=== PATIENT | male | born 1945 | race Caucasian/White ===

== ENCOUNTER → 2016-06-25 | Outpatient (CLI) | payer OTHER | LOC: RAD 08:32 | PROVIDERS: ATTEND Internal Medicine Cardiovascular Disease | DX: R07.89 Other chest pain (principal); R06.09 Other forms of dyspnea | CPT/HCPCS: 78452; 93017; A9502 ==

== ENCOUNTER → 2016-06-28 | Outpatient (CLI) | payer OTHER | LOC: RAD 13:00 | PROVIDERS: ATTEND Internal Medicine Cardiovascular Disease | DX: R06.09 Other forms of dyspnea (principal); R07.89 Other chest pain | CPT/HCPCS: 93306 ==

== ENCOUNTER 2023-02-28 08:07 | Observation (INO) ==
--- NOTE | 2023-02-28 08:32 | DR.EXTPAIN ---
HPI Time seen Time Seen by Provider: 02/28/23 08:31 PCP Primary Care Physician: DELFINO Complaint/Symptoms Chief Complaint Doctor Comments: 77-year-old male presents for evaluation. Patient rolled out of bed last week (per spouse, does this occasionally), injured his back. Pain has improved, denies numbness or bowel bladder incontinence. Having difficulty with standing and ambulation. Both legs feel like jelly. Quickly give out. No difficulty getting out of a chair to standing position. No reported fever, chills, upper respiratory symptoms, no cough, no nausea, no vomiting, no bowel or bladder issues. Has a distant history of lumbar fusion. Chief Complaint:: DAUGHTER STATES THAT PATIENT FELL LAST WEEK AND SINCE THEN HE HAS BEEN UNABLE TO WALK. WHEN HE STANDS UP HIS LEGS FEEL LIKE JELLO. DAUGHTER CALLS DR. SALEH AND HE STATED TO COME TO THE ER FOR A CT SCAN AND POSSIBLE ADMISSION. COVID-19 Coronavirus risk:travel/contact w/high risk person: No Has patient experienced Coronavirus symptoms: No Source History Provided: Patient and Family Member Mode of arrival Mode of Arrival: Wheelchair Timing Onset of Chief Complaint: 02/21/23 PMH PMH Past Medical History: Yes Past Medical History: Diabetes and Hypertension Past Medical History Comment: BACK ISSUES, CAD Past Surgical History: Yes Past Surgical History Comment: BILATERAL LEG STENTS PLACEMENT, history of lumbar fusion Family History History of Family Medical Conditions: Yes Family Medical History: Diabetes Mellitus, Cancer and Hypertension Social History Type of Tobacco Use: None Does any household member use tobacco: No Alcohol Use: None Do you use any recreational Drugs:: No Lives With: Family Lives Where: Home Travel Risk Coronavirus risk:travel/contact w/high risk person: No Has patient experienced Coronavirus symptoms: No Infectious screening In the last 2 months have you had wt loss of >10#?: NO Have you had fever, night sweats or hemotysis?: No Have you traveled outside the country in the last 6 months?: No Isolation: Standard ROS Review of Systems Constitutional: Weakness Eyes: No Symptoms Reported ENTM: No Symptoms Reported Respiratoy: No Symptoms Reported Cardiovascular: No Symptoms Reported Gastrointestinal/Abdominal: No Symptoms Reported Genitourinary: No Symptoms Reported Neurological: See HPI Musculoskeletal: No Symptoms Reported Integumentary: No Symptoms Reported Hematologic/Lymphatic: No Symptoms Reported All Other Systems: Reviewed and Negative PE Vital Signs Vitals: Vital Signs Temperature 97.2 F Pulse Rate 58 Respiratory Rate 20 Blood Pressure 155/72 O2 Sat by Pulse Oximetry 98 General General Appearance: Alert and In No Apparent Distress Head Head Exam: Normal Inspection, Atraumatic and Normocephalic Eyes Eye exam: PERRL and EOMI ENT ENT Exam: Normal Oropharynx and Mucous Membranes Moist Neck Neck Exam: Normal Inspection and Full ROM; negative Tenderness Respiratory Respiratory Exam: Normal Lung Sounds Bilat; negative Accessory Muscle Use or Respiratory Distress Cardiovascular Cardiovascular Exam: Regular Rate, Normal Rhythm and Normal Heart Sounds Abdominal Exam Abdominal Exam: Normal Bowel Sounds and Soft; negative Tenderness Extremities Extremities Exam: Normal Inspection; negative Tenderness or Edema Back Back Exam: Normal Inspection; negative Tenderness Neurological Neurological Exam: Alert, Oriented X3 and CN II-XII Intact Skin Skin Exam: Warm and Dry Other Exam Other Exam: Patient able to get from sitting to standing position without difficulty. Feels very weak on his legs. Able to raise and maintain both legs off the bed, although a little shaky on both. Has good distal pulses and sensation of the f eet. Normal color of the feet. COURSE Treatment Treatment: 77-year-old male with bilateral leg weakness since suffering a fall out of bed 1 week ago. Had lumbar x-rays through his primary care physician, questionable T11-T12 abnormality. Patient not have any back pain or numbness of the legs. Workup initiated. Will obtain thoracic CT for further evaluation, will also obtain a brain CT to rule out other worrisome pathology. 1034 -no obvious cause of the patient's bilateral leg weakness so far. CT of the thoracic spine shows probable old compression fractures of T11 and T12 that have since fused together. CT of the brain showed microischemic changes but no obvious acute abnormalities. CBC, CMP, CK levels acceptable. Has mild elevated ESR at 22, but a normal CRP at 0.8. Lipase is a bit elevated to 45, however patient not having any symptoms consistent with pancreatitis. Urinalysis pending at this time. Discussed with his provider, Dr. Harper. Will admit the patient to the hospital due to his inability to walk. He will request a physical therapy consult, will give a trial of Solu-Medrol, 40 mg, 3 times daily for possible underlying PMR. ROR Labs Reviewed Laboratory Results Reviewed?: Yes 02/28/23 08:45 02/28/23 08:45 Laboratory: WBC 7.2 X10^3/uL (3.6-10.0) 02/28/23 08:45 RBC 4.75 X10^6/uL (4.7-6.0) 02/28/23 08:45 Hgb 14.6 g/dL (13.5-18.0) 02/28/23 08:45 Hct 43.0 % (42.0-54.0) 02/28/23 08:45 MCV 90.5 fL (80.0-100.0) 02/28/23 08:45 MCH 30.7 pg (27.0-34.0) 02/28/23 08:45 MCHC 34.0 g/dL (33.0-35.0) 02/28/23 08:45 RDW 13.7 % (11.6-16.5) 02/28/23 08:45 Plt Count 147 X10^3/uL (150.0-450.0) L 02/28/23 08:45 MPV 7.6 fL (7.4-11.0) 02/28/23 08:45 Neut % (Auto) 45.9 % (42.0-75.0) 02/28/23 08:45 Lymph % (Auto) 32.8 % (21.0-51.0) 02/28/23 08:45 [place] % (Auto) 14.5 % (0.0-13.0) H 02/28/23 08:45 Eos % (Auto) 5.8 % (0.9-2.9) H 02/28/23 08:45 Baso % (Auto) 1.0 % (0.2-1.0) 02/28/23 08:45 Neut # (Auto) 3.3 x10^3/uL (2.2-4.8) 02/28/23 08:45 Lymph # (Auto) 2.4 X10^3/uL (1.3-2.9) 02/28/23 08:45 [place] # (Auto) 1.0 x10^3/uL (0.3-0.8) H 02/28/23 08:45 Eos # (Auto) 0.4 x10^3/uL (0.0-0.2) H 02/28/23 08:45 Baso # (Auto) 0.1 X10^3/uL (0.0-0.1) 02/28/23 08:45 Absolute Nucleated RBC 0.1 /100WBC 02/28/23 08:45 ESR 22 MM/HOUR (0-15) H 02/28/23 08:45 Sodium 135 mmol/L (136-145) L 02/28/23 08:45 Corrected Sodium 136 mmol/L (136-145) 02/28/23 08:45 Potassium 4.3 mmol/L (3.5-5.1) 02/28/23 08:45 Chloride 102 mmol/L (98-107) 02/28/23 08:45 Carbon Dioxide 29.3 mmol/L (21-32) 02/28/23 08:45 BUN 27 mg/dL (7-18) H 02/28/23 08:45 Creatinine 1.22 mg/dL (0.70-1.30) 02/28/23 08:45 Est GFR (MDRD) Af Amer > 60 (>60) 02/28/23 08:45 Est GFR (MDRD) Non-Af > 60 (>60) 02/28/23 08:45 Glucose 136 mg/dL (65-99) H 02/28/23 08:45 Calcium 8.9 mg/dL (8.5-10.1) 02/28/23 08:45 Corrected Calcium TNP 02/28/23 08:45 Magnesium 1.9 mg/dL (2.0-2.9) L 02/28/23 08:45 Total Bilirubin 0.70 mg/dL (0.2-1.0) 02/28/23 08:45 AST 19 Units/L (15-37) 02/28/23 08:45 ALT 31 Units/L (12-78) 02/28/23 08:45 Alkaline Phosphatase 78 Units/L (46-116) 02/28/23 08:45 Creatine Kinase 58 Units/L (39-308) 02/28/23 08:45 C-Reactive Protein 0.80 mg/L (0-3.0) 02/28/23 08:45 Total Protein 7.7 g/dL (6.4-8.2) 02/28/23 08:45 Albumin 3.6 g/dL (3.4-5.0) 02/28/23 08:45 Globulin 4.1 g/dL (2.5-4.5) 02/28/23 08:45 Albumin/Globulin Ratio 0.9 Ratio (1.1-2.1) L 02/28/23 08:45 Lipase 245 Units/L (16-77) H 02/28/23 08:45 Specimen Type Clean catch urine 02/28/23 10:25 Urine Color Yellow (YELLOW) 02/28/23 10:25 Urine Appearance Clear (CLEAR) 02/28/23 10:25 Urine pH 5.0 (5.0 - 8.0) 02/28/23 10:25 Ur Specific [place] 1.020 (1.000-1.030) 02/28/23 10:25 Urine Protein 1+ (NEGATIVE) 02/28/23 10:25 Urine Glucose (UA) Negative (NEGATIVE) 02/28/23 10:25 Urine Ketones Negative (NEGATIVE) 02/28/23 10:25 Urine Blood Negative (NEGATIVE) 02/28/23 10:25 Urine Nitrite Negative (NEGATIVE) 02/28/23 10:25 Urine Bilirubin Negative (NEGATIVE) 02/28/23 10:25 Urine Urobilinogen Normal (NORMAL) 02/28/23 10:25 Ur Leukocyte Esterase Negative (NEGATIVE) 02/28/23 10:25 Urine RBC None seen /HPF (0-3) 02/28/23 10:25 Urine WBC 0-2 /HPF (0-5) 02/28/23 10:25 Ur Squamous Epith Cells Rare /HPF (NEGATIVE) 02/28/23 10:25 Urine Bacteria Negative /HPF (NEGATIVE) 02/28/23 10:25 Ur Culture Indicated? No/not indicated 02/28/23 10:25 XRAY XRAY Interpreted by: Radiologist X-ray Results: EXAM: BRAIN W/O CON HISTORY: fell 6 days ago; COMPARISON: None. TECHNIQUE: Multiple axial images of the head were performed from the skullbase to the vertex using standard departmental protocol. Sagittal and coronal reformatted images were performed. Dose reduction techniques including Automated Exposure Control (AEC) and adjustment of mA and kV were utilized. FINDINGS: Limitations: None significant. Ventricles and cisterns: Patent. Normal in size for age. Brain parenchyma: No parenchymal mass or hematoma. Acosta-white differentiation appears preserved. Moderate low attenuation change in the supratentorial subcortical and deep white matter. Extra-axial: No extra-axial collection. Orbits: The globes are intact. Sinuses: Air-fluid level in the right frontal sinus image 14 series 3. Moderate mucosal thickening of the anterior ethmoid air cells. Bones: The calvarium is intact. IMPRESSION: No intracranial hematoma. Moderate chronic small vessel disease. Air-fluid level in the right frontal sinus suggests acute sinusitis. THIS IS AN ELECTRONICALLY VERIFIED FINAL REPORT 02/28/2023 9:23 AM - Electronically signed by Alverto Hercules MD EXAM: THORACIC SPINE W/O CON HISTORY: Fall, bilateral leg weakness TECHNIQUE: Axial noncontrast images with coronal and sagittal reformats. Dose reduction procedures were used with mA/kv adjusted for body size. COMPARISON: None FINDINGS: The bones are osteopenic. The alignment is normal. The vertebral bodies are of average height with exception old compressions T11/T12 with fusion of those 2 vertebral bodies with obliteration of the T11-12 disc. No new compression fractures are identified. Disc heights are preserved with exception of degenerative disc disease at T3-4 and T8-9. Pedicles, transverse processes, and posterior elements are intact. The neural foramina are patent. The joints are within normal limits for age. No acute fracture, lytic, or blastic lesion is identified. No paraspinous soft tissue abnormality is identified. It should be noted that CT is not adequate for the evaluation of thoracic disc disease or thoracic spinal cord disease. If either of those entities are of clinical concern MRI is the examination of choice and should be considered. IMPRESSION: No definite acute traumatic thoracic spine abnormality. Old compressions of T11/T12 with fusion of those vertebral bodies with obliteration of the disc. Multilevel degenerative disc disease See note above with reference to thoracic disc disease and spinal cord disease. THIS IS AN ELECTRONICALLY VERIFIED FINAL REPORT 02/28/2023 9:53 AM - Electronically signed by Joshua Rodriguez MD Opioid Opioid Risk Tool Age (Zachary box if 16-45): No History of Preadolescent Sexual Abuse: No Total: 0 Total Score Risk Category: Low Risk Copyright: Darion LLOYD predicting aberrant behaviors Discharge Plan Diagnosis Discharge Problem: Bilateral leg weakness, Inability to walk Discharge Plan Patient Disposition: 09 ADMITTED INPATIENT Condition: Stable
[2023-02-28] MEDS ORDERED: NS 500 ML IV 500 ML IV ONE ×2 (08:46→08:51)
[2023-02-28 08:57] LABS: BASOPHILS # (AUTO) 0.1 X10^3/uL (0.0-0.1); EOSINOPHILS # (AUTO) 0.4 x10^3/uL (0.0-0.2); EOSINOPHILS % (AUTO) 5.8 % (0.9-2.9); HEMOGLOBIN 14.6 g/dL (13.5-18.0); LYMPHOCYTES # (AUTO) 2.4 X10^3/uL (1.3-2.9); LYMPHOCYTES % (AUTO) 32.8 % (21.0-51.0); MEAN CORPUSCULAR HEMOGLOBIN 30.7 pg (27.0-34.0); MEAN CORPUSCULAR VOLUME 90.5 fL (80.0-100.0); MEAN PLATELET VOLUME 7.6 fL (7.4-11.0); MONOCYTES % (AUTO) 14.5 % (0.0-13.0); NEUTROPHILS # (AUTO) 3.3 x10^3/uL (2.2-4.8); NEUTROPHILS % (AUTO) 45.9 % (42.0-75.0); PLATELET COUNT 147 X10^3/uL (150.0-450.0); RED BLOOD COUNT 4.75 X10^6/uL (4.7-6.0); RED CELL DISTRIBUTION WIDTH 13.7 % (11.6-16.5); WHITE BLOOD COUNT 7.2 X10^3/uL (3.6-10.0)
[2023-02-28 09:01] LABS: ERYTHROCYTE SEDIMENTATION RATE 22 MM/HOUR (0-15)
[2023-02-28 09:18] LABS: ALANINE AMINOTRANSFERASE 31 Units/L (12-78); ALBUMIN 3.6 g/dL (3.4-5.0); ALKALINE PHOSPHATASE 78 Units/L (46-116); ASPARTATE AMINO TRANSFERASE 19 Units/L (15-37); BLOOD UREA NITROGEN 27 mg/dL (7-18); CALCIUM 8.9 mg/dL (8.5-10.1); CARBON DIOXIDE 29.3 mmol/L (21-32); CHLORIDE 102 mmol/L (98-107); COR NA(FOR HYPERGLY) 136 mmol/L (136-145); CREATINE KINASE 58 Units/L (39-308); CREATININE 1.22 mg/dL (0.70-1.30); GLUCOSE 136 mg/dL (65-99); LIPASE 245 Units/L (16-77); POTASSIUM 4.3 mmol/L (3.5-5.1); SODIUM 135 mmol/L (136-145); TOTAL PROTEIN 7.7 g/dL (6.4-8.2); eGFR NON BLACK RACES > 60 (>60)
--- NOTE | 2023-02-28 09:26 | CT ---
EXAM:BRAIN W/O CONHISTORY:fell 6 days ago;COMPARISON:None.TECHNIQUE:Multiple axial images of the head were performed from the skullbase to the vertex using standard departmental protocol. Sagittal and coronal reformatted images were performed. Dose reduction techniques including Automated Exposure Control (AEC) and adjustment of mA and kV were utilized.FINDINGS:Limitations: None significant.Ventricles and cisterns: Patent. Normal in size for age.Brain parenchyma: No parenchymal mass or hematoma. Acosta-white differentiation appears preserved. Moderate low attenuation change in the supratentorial subcortical and deep white matter.Extra-axial: No extra-axial collection.Orbits: The globes are intact.Sinuses: Air-fluid level in the right frontal sinus image 14 series 3. Moderate mucosal thickening of the anterior ethmoid air cells.Bones: The calvarium is intact.IMPRESSION:No intracranial hematoma. Moderate chronic small vessel disease.Air-fluid level in the right frontal sinus suggests acute sinusitis.THIS IS AN ELECTRONICALLY VERIFIED FINAL REPORT02/28/2023 9:23 AM - Electronically signed by Alverto Hercules MD
--- NOTE | 2023-02-28 09:57 | CT ---
EXAM:THORACIC SPINE W/O CONHISTORY:Fall, bilateral leg weaknessTECHNIQUE:Axial noncontrast images with coronal and sagittal reformats. Dose reduction procedures were used with mA/kv adjusted for body size.COMPARISON:NoneFINDINGS:The bones are osteopenic. The alignment is normal. The vertebral bodies are of average height with exception old compressions T11/T12 with fusion of those 2 vertebral bodies with obliteration of the T11-12 disc. No new compression fractures are identified. Disc heights are preserved with exception of degenerative disc disease at T3-4 and T8-9. Pedicles, transverse processes, and posterior elements are intact. The neural foramina are patent. The joints are within normal limits for age. No acute fracture, lytic, or blastic lesion is identified. No paraspinous soft tissue abnormality is identified. It should be noted that CT is not adequate for the evaluation of thoracic disc disease or thoracic spinal cord disease. If either of those entities are of clinical concern MRI is the examination of choice and should be considered.IMPRESSION:No definite acute traumatic thoracic spine abnormality.Old compressions of T11/T12 with fusion of those vertebral bodies with obliteration of the disc.Multilevel degenerative disc diseaseSee note above with reference to thoracic disc disease and spinal cord disease.THIS IS AN ELECTRONICALLY VERIFIED FINAL REPORT02/28/2023 9:53 AM - Electronically signed by Joshua Rodriguez MD
[2023-02-28 10:30] LABS: BILIRUBIN,URINE NEGATIVE (NEGATIVE); BLOOD/HEMOGLOBIN,URINE NEGATIVE (NEGATIVE); GLUCOSE, URINE NEGATIVE (NEGATIVE); KETONES,URINE NEGATIVE (NEGATIVE); LEUKOCYTE ESTERASE ,URINE NEGATIVE (NEGATIVE); NITRITES,URINE NEGATIVE (NEGATIVE); PROTEIN,URINE 1+ (NEGATIVE); UROBILINOGEN,URINE NORMAL (NORMAL)
[2023-02-28 10:39] LABS: APPEARANCE,URINE CLEAR (CLEAR); BACTERIA,URINE NEGATIVE /HPF (NEGATIVE); COLOR,URINE YELLOW (YELLOW); RBC,URINE NONE SEEN /HPF (0-3); SQUAMOUS EPITHELIAL CELL,UR RARE /HPF (NEGATIVE)
[2023-02-28] MEDS ORDERED: SOLU-Medrol 40 MG VIAL IVP ONE (11:02)
[2023-02-28] MEDS ORDERED: SOLU-Medrol 40 MG VIAL ONE (11:09)
[2023-02-28] MEDS ORDERED: CONSULT PHARMACY - POTASSIUM & MAGNESIUM XX SCH ×2 (12:18→19:00)
[2023-02-28] MEDS: NEURONTIN CAP 100 MG PO SCH ×2 (14:13→21:34)
[2023-02-28] MEDS: SOLU-Medrol 40 MG VIAL IVP SCH ×2 (14:13→21:34)
[2023-02-28 15:51] VITALS: BMI 29.8
[2023-02-28] MEDS: NovoLIN R (or HumuLIN R) SUBCUT PRN (16:28)
--- NOTE | 2023-02-28 17:55 | EKG ---
Test Reason : chest pain Blood Pressure : */* mmHG Vent. Rate : 75 BPM Atrial Rate : 75 BPM P-R Int : 224 ms QRS Dur : 92 ms QT Int : 414 ms P-R-T Axes : 51 24 67 degrees QTc Int : 462 ms Sinus rhythm with 1st degree AV block Anterior infarct , age undetermined Abnormal ECG When compared with ECG of 06-NOV-2022 14:14, No significant change was found Confirmed by Florin Hurtado ([id number]) on 03/02/2023 9:16:39 AM Referred By: Confirmed By: Florin Hurtado
--- NOTE | 2023-02-28 19:56 | DR.H&P ---
H&P History & Physical for Day of: H&P Date: 02/28/23 Chief Complaint Chief Complaint: Difficulty walking Allergies Allergies Allergy/AdvReac Type Severity Reaction Status Date / Time metformin AdvReac Mild CONFUSION Verified 11/27/22 09:57 History of Present Illness History of Present Illness: This is a 77-year-old white male who tells me that he fell out of his bed several days ago and about 3 days after the fall he got where his legs were very weak and fell like jelly and could barely walk. Did x- ray of his back that showed what looked like to be a possible subacute injury in the thoracic area and an old fusion that he had from previous surgery. I told the patient if he was not getting better by the next day for him to go to the emergency room today for a CT scan of his thoracic spine to see if there is anything the T-spine did not show. This morning his 2 sons help load him up in the car and his drove him to the emergency department here in [facility]. CT scan was done that showed no acute injury but an old thoracic fusion. The patient is able to stand but is having great difficulty taking steps as his legs are very weak. He is not having any pain shooting down his legs so I am not exactly sure what is causing his profound weakness at this time. I total we will plan on doing MRIs with and without contrast tomorrow of his thoracic and lumbar spine. Past Medical History Past Medical History: Diabetes and Hypertension Past Surgical History Surgical History: CABG/Valve Surgery, Ortho Surgery, Tonsillectomy and Other Family History Family Medical History: Diabetes Mellitus, Cancer, Coronary Artery Disease, Heart Failure and Hypertension Social History Does patient currently use any type of tobacco product: No Have you used tobacco products in the last 12 months: No Type of Tobacco Use: None Does any household member use tobacco: No Alcohol Use: None Drug Use: None Medications Home Medications: Home Medications Medication Instructions Recorded Confirmed Type atorvastatin 40 mg tablet 40 mg PO QDAY 07/30/22 02/28/23 History gabapentin 100 mg capsule 100 mg PO TID 07/30/22 02/28/23 History levothyroxine 175 mcg tablet 175 mcg PO QDAY 07/30/22 02/28/23 History rivaroxaban 2.5 mg tablet (Xarelto) 2.5 mg PO BID 11/27/22 02/28/23 History insulin degludec 100 unit/mL 50 unit subcut HS 02/28/23 02/28/23 History subcutaneous solution (Tresiba U-100 Insulin) lisinopril 20 mg tablet 20 mg PO DAILY 02/28/23 02/28/23 History oxybutynin chloride 10 mg 10 mg PO HS 02/28/23 02/28/23 History tablet,extended release 24 hr Labs 02/28/23 08:45 02/28/23 08:45 Labs: Laboratory WBC 7.2 X10^3/uL (3.6-10.0) 02/28/23 08:45 RBC 4.75 X10^6/uL (4.7-6.0) 02/28/23 08:45 Hgb 14.6 g/dL (13.5-18.0) 02/28/23 08:45 Hct 43.0 % (42.0-54.0) 02/28/23 08:45 MCV 90.5 fL (80.0-100.0) 02/28/23 08:45 MCH 30.7 pg (27.0-34.0) 02/28/23 08:45 MCHC 34.0 g/dL (33.0-35.0) 02/28/23 08:45 RDW 13.7 % (11.6-16.5) 02/28/23 08:45 Plt Count 147 X10^3/uL (150.0-450.0) L 02/28/23 08:45 MPV 7.6 fL (7.4-11.0) 02/28/23 08:45 Neut % (Auto) 45.9 % (42.0-75.0) 02/28/23 08:45 Lymph % (Auto) 32.8 % (21.0-51.0) 02/28/23 08:45 [place] % (Auto) 14.5 % (0.0-13.0) H 02/28/23 08:45 Eos % (Auto) 5.8 % (0.9-2.9) H 02/28/23 08:45 Baso % (Auto) 1.0 % (0.2-1.0) 02/28/23 08:45 Neut # (Auto) 3.3 x10^3/uL (2.2-4.8) 02/28/23 08:45 Lymph # (Auto) 2.4 X10^3/uL (1.3-2.9) 02/28/23 08:45 [place] # (Auto) 1.0 x10^3/uL (0.3-0.8) H 02/28/23 08:45 Eos # (Auto) 0.4 x10^3/uL (0.0-0.2) H 02/28/23 08:45 Baso # (Auto) 0.1 X10^3/uL (0.0-0.1) 02/28/23 08:45 Absolute Nucleated RBC 0.1 /100WBC 02/28/23 08:45 ESR 22 MM/HOUR (0-15) H 02/28/23 08:45 Sodium 135 mmol/L (136-145) L 02/28/23 08:45 Corrected Sodium 136 mmol/L (136-145) 02/28/23 08:45 Potassium 4.3 mmol/L (3.5-5.1) 02/28/23 08:45 Chloride 102 mmol/L (98-107) 02/28/23 08:45 Carbon Dioxide 29.3 mmol/L (21-32) 02/28/23 08:45 BUN 27 mg/dL (7-18) H 02/28/23 08:45 Creatinine 1.22 mg/dL (0.70-1.30) 02/28/23 08:45 Est GFR (MDRD) Af Amer > 60 (>60) 02/28/23 08:45 Est GFR (MDRD) Non-Af > 60 (>60) 02/28/23 08:45 Glucose 136 mg/dL (65-99) H 02/28/23 08:45 POC Glucose (mg/dL) 262 mg/dL (65-99) H 02/28/23 16:14 Calcium 8.9 mg/dL (8.5-10.1) 02/28/23 08:45 Corrected Calcium TNP 02/28/23 08:45 Magnesium 1.9 mg/dL (2.0-2.9) L 02/28/23 08:45 Total Bilirubin 0.70 mg/dL (0.2-1.0) 02/28/23 08:45 AST 19 Units/L (15-37) 02/28/23 08:45 ALT 31 Units/L (12-78) 02/28/23 08:45 Alkaline Phosphatase 78 Units/L (46-116) 02/28/23 08:45 Creatine Kinase 58 Units/L (39-308) 02/28/23 08:45 Troponin I High Sens 5.3 ng/L (4.0-60.0) 02/28/23 08:45 C-Reactive Protein 0.80 mg/L (0-3.0) 02/28/23 08:45 Total Protein 7.7 g/dL (6.4-8.2) 02/28/23 08:45 Albumin 3.6 g/dL (3.4-5.0) 02/28/23 08:45 Globulin 4.1 g/dL (2.5-4.5) 02/28/23 08:45 Albumin/Globulin Ratio 0.9 Ratio (1.1-2.1) L 02/28/23 08:45 Lipase 245 Units/L (16-77) H 02/28/23 08:45 Specimen Type Clean catch urine 02/28/23 10:25 Urine Color Yellow (YELLOW) 02/28/23 10:25 Urine Appearance Clear (CLEAR) 02/28/23 10:25 Urine pH 5.0 (5.0 - 8.0) 02/28/23 10:25 Ur Specific [place] 1.020 (1.000-1.030) 02/28/23 10:25 Urine Protein 1+ (NEGATIVE) 02/28/23 10:25 Urine Glucose (UA) Negative (NEGATIVE) 02/28/23 10:25 Urine Ketones Negative (NEGATIVE) 02/28/23 10:25 Urine Blood Negative (NEGATIVE) 02/28/23 10:25 Urine Nitrite Negative (NEGATIVE) 02/28/23 10:25 Urine Bilirubin Negative (NEGATIVE) 02/28/23 10:25 Urine Urobilinogen Normal (NORMAL) 02/28/23 10:25 Ur Leukocyte Esterase Negative (NEGATIVE) 02/28/23 10:25 Urine RBC None seen /HPF (0-3) 02/28/23 10:25 Urine WBC 0-2 /HPF (0-5) 02/28/23 10:25 Ur Squamous Epith Cells Rare /HPF (NEGATIVE) 02/28/23 10:25 Urine Bacteria Negative /HPF (NEGATIVE) 02/28/23 10:25 Ur Culture Indicated? No/not indicated 02/28/23 10:25 Review of Systems Constitutional: Weakness Eyes: No Symptoms Reported ENT: No Symptoms Reported Respiratory: No Symptoms Reported Cardiovascular: No Symptoms Reported Gastrointestinal: No Symptoms Reported Genitourinary: No Symptoms Reported Musculoskeletal: No Symptoms Reported Skin: No Symptoms Reported Neurological: Weakness and Incoordination Physical Exam Vital Signs: Vital Signs Temperature 97.6 F Temperature 97.6 F Pulse Rate [Brachial] 87 Pulse Rate [Brachial] 58 Respiratory Rate 20 Respiratory Rate 20 Blood Pressure [Left Arm] 158/71 Blood Pressure [Left Arm] 185/83 O2 Sat by Pulse Oximetry 92 O2 Sat by Pulse Oximetry 97 Oriented: Normal, Time, Person and Place Eyes: Normal Ear: Normal Nose: Normal Throat: Normal Respiratory: Clear Throughout Cardiovascular: Normal : Normal Auscultation: Bowel Sounds: Normal Palpation: Normal Tenderness: Normal Skin: Normal Musculoskeletal: Normal Psychiatric: Normal Mood Description: Calm Affect: Normal Speech Pattern: Clear and Appropriate Assessment/Plan (1) Bilateral leg weakness: Status: Acute Plan: Will start patient on Solu-Medrol 40 mg IV 3 times daily and check MRI of his thoracic and lumbar spine with and without contrast tomorrow morning. (2) Inability to walk: Status: Acute Plan: Follow-up MRIs after they are done tomorrow. (3) Type 2 diabetes mellitus: Status: Acute Plan: I will cover patient with slight scale regular insulin per protocol especially since we are giving him IV Solu-Medrol. (4) COPD (chronic obstructive pulmonary disease): Status: Acute Review H&P Reviewed: Yes Patient was examined?: Yes
[2023-02-28] MEDS: SNACK - Diabetic Appropriate PO SCH (20:12)
[2023-02-28] MEDS: EXELON PO SCH (20:13)
[2023-02-28] MEDS: VALIUM PO PRN (20:20)
[2023-02-28] MEDS: OXYBUTYNIN CHLORIDE ER PO SCH (20:20)
[2023-02-28] MEDS: LEVEMIR SC SCH (20:22)
[2023-02-28] MEDS: MAG-OX TAB PO SCH ×2 (20:24→21:33)
[2023-02-28] MEDS: FLOMAX PO SCH (22:08)
[2023-02-28] MEDS: XARELTO PO SCH (22:09)
[2023-03-01] MEDS: NEURONTIN CAP 100 MG PO SCH ×3 (05:02→21:01)
[2023-03-01] MEDS: SOLU-Medrol 40 MG VIAL IVP SCH ×3 (05:03→21:02)
[2023-03-01 05:27] LABS: BASOPHILS % (AUTO) 0.1 % (0.2-1.0); HEMATOCRIT 42.6 % (42.0-54.0); HEMOGLOBIN 14.4 g/dL (13.5-18.0); LYMPHOCYTES # (AUTO) 0.6 X10^3/uL (1.3-2.9); LYMPHOCYTES % (AUTO) 5.5 % (21.0-51.0); MEAN CORPUSCULAR HEMOGLOBIN 30.5 pg (27.0-34.0); MEAN CORPUSCULAR HGB CONC 33.8 g/dL (33.0-35.0); MEAN CORPUSCULAR VOLUME 90.3 fL (80.0-100.0); MEAN PLATELET VOLUME 8.1 fL (7.4-11.0); MONOCYTES # (AUTO) 0.3 x10^3/uL (0.3-0.8); MONOCYTES % (AUTO) 2.3 % (0.0-13.0); NEUTROPHILS # (AUTO) 10.5 x10^3/uL (2.2-4.8); NEUTROPHILS % (AUTO) 92.1 % (42.0-75.0); PLATELET COUNT 152 X10^3/uL (150.0-450.0); RED BLOOD COUNT 4.72 X10^6/uL (4.7-6.0); RED CELL DISTRIBUTION WIDTH 13.7 % (11.6-16.5); WHITE BLOOD COUNT 11.4 X10^3/uL (3.6-10.0)
[2023-03-01] MEDS: NovoLIN R (or HumuLIN R) SUBCUT PRN ×4 (05:34→20:35)
[2023-03-01 05:42] LABS: ALANINE AMINOTRANSFERASE 31 Units/L (12-78); ALBUMIN 3.6 g/dL (3.4-5.0); ALKALINE PHOSPHATASE 83 Units/L (46-116); ASPARTATE AMINO TRANSFERASE 14 Units/L (15-37); BLOOD UREA NITROGEN 25 mg/dL (7-18); CALCIUM 9.2 mg/dL (8.5-10.1); CARBON DIOXIDE 28.3 mmol/L (21-32); CHLORIDE 102 mmol/L (98-107); COR NA(FOR HYPERGLY) 142 mmol/L (136-145); CREATININE 1.33 mg/dL (0.70-1.30); GLUCOSE 237 mg/dL (65-99); POTASSIUM 3.8 mmol/L (3.5-5.1); SODIUM 139 mmol/L (136-145); TOTAL PROTEIN 7.9 g/dL (6.4-8.2); eGFR NON BLACK RACES 55 (>60)
[2023-03-01 06:06] LABS: BAND NEUTROPHILS % 3 % (0-10); PLATELET MORPHOLOGY COMMENT NORMAL (NORMAL)
[2023-03-01] MEDS ORDERED: CONSULT PHARMACY - POTASSIUM & MAGNESIUM XX SCH (08:00)
[2023-03-01] MEDS ORDERED: ZESTRIL TAB 20 MG ONE (08:17)
[2023-03-01] MEDS: COREG TAB 12.5 MG PO SCH ×2 (08:34→20:31)
[2023-03-01] MEDS: EXELON PO SCH ×2 (08:34→20:29)
[2023-03-01] MEDS: LIPITOR TAB 40 MG PO SCH (08:36)
[2023-03-01] MEDS: NAMENDA TAB 10 MG PO SCH (08:36)
[2023-03-01] MEDS: LINZESS PO SCH (08:36)
[2023-03-01] MEDS: SYNTHROID 175 mcg TAB PO SCH (08:37)
[2023-03-01] MEDS: ZESTRIL TAB 20 MG PO SCH (08:38)
[2023-03-01] MEDS: XARELTO PO SCH ×2 (08:38→20:31)
[2023-03-01] MEDS ORDERED: MULTIHANCE INJ VIAL ONE (08:47)
[2023-03-01] MEDS ORDERED: K-DUR TAB 20 MEQ PO ONE (09:00)
[2023-03-01] MEDS ORDERED: MAG-OX TAB PO ONE (09:00)
--- NOTE | 2023-03-01 20:12 | PCM.PROG ---
Progress Note Progress Note for Day of Date of Exam: 03/01/23 Subjective Subjective: The patient is resting comfortably this morning. He has had no acute problems since admission yesterday. We are planning to do an MRI of his thoracic and lumbar back today with and without contrast. We will follow-up the results later today when they are available. He still has trouble ambulating since falling out of the bed and hitting the corner of the door jam. He reports his legs still feel weak and rubbery and it feels like he does not have a lot of control over them. CT scan revealed no acute injuries however we will follow-up with MRIs to see if there is something subtle that we missed. He did request a rollator walker today to help him get up and move around the room so we will get that for him. Will continue with physical therapy to help strengthen his lower extremities. Will continue IV Solu-Medrol to see if this will help relieve his symptoms. Past Medical Family Social History Allergies: Allergies metformin Adverse Reaction (Mild, Verified 11/27/22 09:57) CONFUSION Review of Systems ROS: No change since H&P Vital Signs and I&O's Vital Signs: Vital Signs Temperature 97.6 F Pulse Rate [Brachial] 65 Respiratory Rate 18 Blood Pressure [Left Arm] 133/63 O2 Sat by Pulse Oximetry 94 Intake and Output: Intake & Output 02/27/23 02/28/23 03/01/23 03/02/23 11:59 11:59 11:59 11:59 Intake Total 1680 / 1680 1025 / 1025 Output Total 2490 / 2490 Balance -810 / -810 1025 / 1025 Physical Exam Oriented: Normal, Time, Person and Place Eyes: Normal Ear: Normal Nose: Normal Throat: Normal Respiratory: Normal Cardiovascular: Normal : Normal Auscultation: Bowel Sounds: Normal Tenderness: Normal Skin: Normal Musculoskeletal: Normal Psychiatric: Normal Mood Description: Calm Affect: Normal Speech Pattern: Clear and Appropriate Laboratory and Diagnostics 03/01/23 04:50 03/01/23 04:50 Labs: Laboratory WBC 11.4 X10^3/uL (3.6-10.0) H 03/01/23 04:50 RBC 4.72 X10^6/uL (4.7-6.0) 03/01/23 04:50 Hgb 14.4 g/dL (13.5-18.0) 03/01/23 04:50 Hct 42.6 % (42.0-54.0) 03/01/23 04:50 MCV 90.3 fL (80.0-100.0) 03/01/23 04:50 MCH 30.5 pg (27.0-34.0) 03/01/23 04:50 MCHC 33.8 g/dL (33.0-35.0) 03/01/23 04:50 RDW 13.7 % (11.6-16.5) 03/01/23 04:50 Plt Count 152 X10^3/uL (150.0-450.0) 03/01/23 04:50 Plt Count Comment Adequate (ADEQUATE) 03/01/23 04:50 MPV 8.1 fL (7.4-11.0) 03/01/23 04:50 Neut % (Auto) 92.1 % (42.0-75.0) H 03/01/23 04:50 Lymph % (Auto) 5.5 % (21.0-51.0) L 03/01/23 04:50 [place] % (Auto) 2.3 % (0.0-13.0) 03/01/23 04:50 Eos % (Auto) 0.0 % (0.9-2.9) L 03/01/23 04:50 Baso % (Auto) 0.1 % (0.2-1.0) L 03/01/23 04:50 Neut # (Auto) 10.5 x10^3/uL (2.2-4.8) H 03/01/23 04:50 Lymph # (Auto) 0.6 X10^3/uL (1.3-2.9) L 03/01/23 04:50 [place] # (Auto) 0.3 x10^3/uL (0.3-0.8) 03/01/23 04:50 Eos # (Auto) 0.0 x10^3/uL (0.0-0.2) 03/01/23 04:50 Baso # (Auto) 0.0 X10^3/uL (0.0-0.1) 03/01/23 04:50 Absolute Nucleated RBC 0.0 /100WBC 03/01/23 04:50 Total Counted 100 03/01/23 04:50 Neutrophils % (Manual) 92 % (39-76) H 03/01/23 04:50 Band Neutrophils % 3 % (0-10) 03/01/23 04:50 Lymphocytes % (Manual) 2 % (13-43) L 03/01/23 04:50 Monocytes % (Manual) 3 % (4-9) L 03/01/23 04:50 Plt Morphology Comment Normal (NORMAL) 03/01/23 04:50 RBC Morphology Normal (NORMAL) 03/01/23 04:50 ESR 22 MM/HOUR (0-15) H 02/28/23 08:45 Sodium 139 mmol/L (136-145) 03/01/23 04:50 Corrected Sodium 142 mmol/L (136-145) 03/01/23 04:50 Potassium 3.8 mmol/L (3.5-5.1) 03/01/23 04:50 Chloride 102 mmol/L (98-107) 03/01/23 04:50 Carbon Dioxide 28.3 mmol/L (21-32) 03/01/23 04:50 BUN 25 mg/dL (7-18) H 03/01/23 04:50 Creatinine 1.33 mg/dL (0.70-1.30) H 03/01/23 04:50 Est GFR (MDRD) Af Amer > 60 (>60) 03/01/23 04:50 Est GFR (MDRD) Non-Af 55 (>60) L 03/01/23 04:50 Glucose 237 mg/dL (65-99) H 03/01/23 04:50 POC Glucose (mg/dL) 307 mg/dL (65-99) H 03/01/23 20:03 Calcium 9.2 mg/dL (8.5-10.1) 03/01/23 04:50 Corrected Calcium TNP 03/01/23 04:50 Magnesium 2.0 mg/dL (2.0-2.9) 03/01/23 04:50 Total Bilirubin 0.50 mg/dL (0.2-1.0) 03/01/23 04:50 AST 14 Units/L (15-37) L 03/01/23 04:50 ALT 31 Units/L (12-78) 03/01/23 04:50 Alkaline Phosphatase 83 Units/L (46-116) 03/01/23 04:50 Creatine Kinase 58 Units/L (39-308) 02/28/23 08:45 Troponin I High Sens 5.3 ng/L (4.0-60.0) 02/28/23 08:45 C-Reactive Protein 0.80 mg/L (0-3.0) 02/28/23 08:45 Total Protein 7.9 g/dL (6.4-8.2) 03/01/23 04:50 Albumin 3.6 g/dL (3.4-5.0) 03/01/23 04:50 Globulin 4.3 g/dL (2.5-4.5) 03/01/23 04:50 Albumin/Globulin Ratio 0.8 Ratio (1.1-2.1) L 03/01/23 04:50 Lipase 245 Units/L (16-77) H 02/28/23 08:45 Specimen Type Clean catch urine 02/28/23 10:25 Urine Color Yellow (YELLOW) 02/28/23 10:25 Urine Appearance Clear (CLEAR) 02/28/23 10:25 Urine pH 5.0 (5.0 - 8.0) 02/28/23 10:25 Ur Specific [place] 1.020 (1.000-1.030) 02/28/23 10:25 Urine Protein 1+ (NEGATIVE) 02/28/23 10:25 Urine Glucose (UA) Negative (NEGATIVE) 02/28/23 10:25 Urine Ketones Negative (NEGATIVE) 02/28/23 10:25 Urine Blood Negative (NEGATIVE) 02/28/23 10:25 Urine Nitrite Negative (NEGATIVE) 02/28/23 10:25 Urine Bilirubin Negative (NEGATIVE) 02/28/23 10:25 Urine Urobilinogen Normal (NORMAL) 02/28/23 10:25 Ur Leukocyte Esterase Negative (NEGATIVE) 02/28/23 10:25 Urine RBC None seen /HPF (0-3) 02/28/23 10:25 Urine WBC 0-2 /HPF (0-5) 02/28/23 10:25 Ur Squamous Epith Cells Rare /HPF (NEGATIVE) 02/28/23 10:25 Urine Bacteria Negative /HPF (NEGATIVE) 02/28/23 10:25 Ur Culture Indicated? No/not indicated 02/28/23 10:25 Radiology Reviewed: Yes Plan (1) Bilateral leg weakness: Status: Acute Plan: Will start patient on Solu-Medrol 40 mg IV 3 times daily and check MRI of his thoracic and lumbar spine with and without contrast this morning. Reviewed findings with patient when report is available. (2) Inability to walk: Status: Acute Plan: Follow-up MRIs after they are done this morning. (3) Type 2 diabetes mellitus: Status: Acute Plan: I will cover patient with slight scale regular insulin per protocol especially since we are giving him IV Solu-Medrol. (4) COPD (chronic obstructive pulmonary disease): Status: Acute
[2023-03-01] MEDS: FLOMAX PO SCH ×2 (20:28→20:37)
[2023-03-01] MEDS: OXYBUTYNIN CHLORIDE ER PO SCH (20:30)
[2023-03-01] MEDS: VALIUM PO PRN (20:31)
[2023-03-01] MEDS: LEVEMIR SC SCH (20:32)
[2023-03-01] MEDS: SNACK - Diabetic Appropriate PO SCH (20:36)
[2023-03-02] MEDS: NEURONTIN CAP 100 MG PO SCH ×3 (05:22→21:27)
[2023-03-02] MEDS: SOLU-Medrol 40 MG VIAL IVP SCH ×3 (05:23→21:27)
[2023-03-02] MEDS: NovoLIN R (or HumuLIN R) SUBCUT PRN ×4 (05:30→20:46)
[2023-03-02 06:25] LABS: BASOPHILS % (AUTO) 0.1 % (0.2-1.0); HEMATOCRIT 40.2 % (42.0-54.0); HEMOGLOBIN 13.6 g/dL (13.5-18.0); LYMPHOCYTES # (AUTO) 0.9 X10^3/uL (1.3-2.9); LYMPHOCYTES % (AUTO) 6.7 % (21.0-51.0); MEAN CORPUSCULAR HEMOGLOBIN 30.7 pg (27.0-34.0); MEAN CORPUSCULAR HGB CONC 33.7 g/dL (33.0-35.0); MEAN CORPUSCULAR VOLUME 90.9 fL (80.0-100.0); MEAN PLATELET VOLUME 8.7 fL (7.4-11.0); MONOCYTES # (AUTO) 0.9 x10^3/uL (0.3-0.8); NEUTROPHILS # (AUTO) 12.3 x10^3/uL (2.2-4.8); NEUTROPHILS % (AUTO) 87.2 % (42.0-75.0); PLATELET COUNT 151 X10^3/uL (150.0-450.0); RED BLOOD COUNT 4.43 X10^6/uL (4.7-6.0); RED CELL DISTRIBUTION WIDTH 13.8 % (11.6-16.5); WHITE BLOOD COUNT 14.1 X10^3/uL (3.6-10.0)
[2023-03-02 06:36] LABS: ALANINE AMINOTRANSFERASE 28 Units/L (12-78); ALBUMIN 3.3 g/dL (3.4-5.0); ALKALINE PHOSPHATASE 74 Units/L (46-116); ASPARTATE AMINO TRANSFERASE 15 Units/L (15-37); BLOOD UREA NITROGEN 28 mg/dL (7-18); CALCIUM 8.8 mg/dL (8.5-10.1); CARBON DIOXIDE 27.9 mmol/L (21-32); CHLORIDE 104 mmol/L (98-107); COR CA(FOR HYPOALB) 9.4 mg/dL (8.5-10.1); COR NA(FOR HYPERGLY) 141 mmol/L (136-145); CREATININE 1.08 mg/dL (0.70-1.30); GLUCOSE 229 mg/dL (65-99); SODIUM 138 mmol/L (136-145); TOTAL PROTEIN 7.2 g/dL (6.4-8.2); eGFR NON BLACK RACES > 60 (>60)
[2023-03-02 06:39] LABS: POTASSIUM 4.2 mmol/L (3.5-5.1)
--- NOTE | 2023-03-02 06:55 | MRI ---
EXAM:MRI thoracic spine with and without contrastHISTORY:Bilateral lower extremity weakness with inability to walk.COMPARISON:CT thoracic spine from 02/28/2023.TECHNIQUE:Before and after administration IV contrast, multiplanar, multisequence MRI of the thoracic spine was performed.FINDINGS:ALIGNMENT:Focal kyphosis at T11-T12. No other significant misalignment.SPINAL CORD: No significant abnormality.VERTEBRAE:Chronic compression deformities of T11 and T12 without associated marrow edema. No acute fracture or aggressive appearing bone marrow signal elsewhere.SPONDYLOSIS: Fusion of the T11 and T12 vertebral bodies is again noted. No significant disc bulge, central canal stenosis or neural foraminal narrowing along the thoracic spine. Mild central canal stenosis is seen at C5-C6 and C6-C7 secondary to a disc osteophyte complex at the former level and a disc bulge at the latter level.SOFT TISSUES:No acute findings.IMPRESSION:1. No significant abnormality accounting for the patient's lower extremity weakness.2. Additional findings as above.THIS IS AN ELECTRONICALLY VERIFIED FINAL REPORT03/02/2023 6:52 AM - Electronically signed by Shaun Luong MD
--- NOTE | 2023-03-02 07:01 | MRI ---
EXAM:MRI lumbar spine with and without contrastHISTORY:Bilateral lower extremity weakness with inability to walk.COMPARISON:Lumbar spine series from 02/21/2023.TECHNIQUE:Before and after administration of IV contrast, multiplanar, multisequence MRI of the lumbar spine was performed.FINDINGS:ALIGNMENT: Normal.VERTEBRAE: No significant abnormality. Expected positioning of L4-L5 fusion.SPINAL CORD: No significant abnormality. The conus terminates at L1.SPONDYLOSIS: Multilevel disc desiccation with mild disc space loss at L5-S1 and multilevel facet and ligamentum flavum hypertrophy. See below for further level by level details.T12 -- L1: No significant disc bulge, central canal stenosis or neural foraminal narrowing.L1 -- L2:No significant disc bulge, central canal stenosis or neural foraminal narrowing.L2 -- L3:No significant disc bulge, central canal stenosis or neural foraminal narrowing.L3 -- L4:Mild central canal stenosis secondary to a disc bulge and hypertrophy of the facets and ligamentum flavum with moderate right and mild left neural foraminal narrowing.L4 -- L5:No significant disc bulge, central canal stenosis or neural foraminal narrowing.L5 -- S1:Mild central canal stenosis secondary to a disc osteophyte complex and hypertrophy of the facets and ligamentum flavum with moderate bilateral neural foraminal narrowing.SOFT TISSUES: No significant abnormality.IMPRESSION:1. No significant abnormality explaining the patient's inability to walk.2. Lumbar spondylosis as above with mild central canal stenosis at L3-L4 and L5-S1 with moderate right neural foraminal narrowing at L3-L4 and moderate bilateral neural foraminal narrowing at L5-S1.3. Expected positioning of L4-L5 fusion.THIS IS AN ELECTRONICALLY VERIFIED FINAL REPORT03/02/2023 6:58 AM - Electronically signed by Shaun Luong MD
[2023-03-02] MEDS ORDERED: ZESTRIL TAB 20 MG ONE (08:38)
[2023-03-02] MEDS: LIPITOR TAB 40 MG PO SCH (08:50)
[2023-03-02] MEDS: SYNTHROID 175 mcg TAB PO SCH (08:50)
[2023-03-02] MEDS: XARELTO PO SCH ×3 (08:50→20:45)
[2023-03-02] MEDS: COREG TAB 12.5 MG PO SCH ×2 (08:50→20:43)
[2023-03-02] MEDS: ZESTRIL TAB 20 MG PO SCH (08:50)
[2023-03-02] MEDS: LINZESS PO SCH (08:50)
[2023-03-02] MEDS: NAMENDA TAB 10 MG PO SCH (08:50)
[2023-03-02] MEDS: EXELON PO SCH ×2 (08:50→20:44)
[2023-03-02] MEDS ORDERED: MAALOX or MYLANTA PO PRN (15:22)
[2023-03-02] MEDS: SNACK - Diabetic Appropriate PO SCH (20:43)
[2023-03-02] MEDS: FLOMAX PO SCH (20:44)
[2023-03-02] MEDS: LEVEMIR SC SCH (20:44)
[2023-03-02] MEDS: OXYBUTYNIN CHLORIDE ER PO SCH (20:45)
[2023-03-02] MEDS: VALIUM PO PRN (20:47)
[2023-03-03] MEDS: NEURONTIN CAP 100 MG PO SCH ×3 (05:30→21:10)
[2023-03-03] MEDS: SOLU-Medrol 40 MG VIAL IVP SCH ×3 (05:30→21:10)
[2023-03-03] MEDS: NovoLIN R (or HumuLIN R) SUBCUT PRN ×4 (05:31→21:11)
[2023-03-03 06:19] LABS: BASOPHILS % (AUTO) 0.2 % (0.2-1.0); HEMOGLOBIN 13.6 g/dL (13.5-18.0); LYMPHOCYTES % (AUTO) 7.1 % (21.0-51.0); MEAN CORPUSCULAR HEMOGLOBIN 30.3 pg (27.0-34.0); MEAN CORPUSCULAR HGB CONC 33.2 g/dL (33.0-35.0); MEAN CORPUSCULAR VOLUME 91.3 fL (80.0-100.0); MEAN PLATELET VOLUME 8.6 fL (7.4-11.0); MONOCYTES # (AUTO) 0.8 x10^3/uL (0.3-0.8); MONOCYTES % (AUTO) 5.8 % (0.0-13.0); NEUTROPHILS # (AUTO) 12.1 x10^3/uL (2.2-4.8); NEUTROPHILS % (AUTO) 86.9 % (42.0-75.0); PLATELET COUNT 155 X10^3/uL (150.0-450.0); RED BLOOD COUNT 4.49 X10^6/uL (4.7-6.0)
[2023-03-03 06:25] LABS: ALANINE AMINOTRANSFERASE 40 Units/L (12-78); ALBUMIN 3.2 g/dL (3.4-5.0); ALKALINE PHOSPHATASE 72 Units/L (46-116); ASPARTATE AMINO TRANSFERASE 19 Units/L (15-37); BLOOD UREA NITROGEN 25 mg/dL (7-18); CALCIUM 8.6 mg/dL (8.5-10.1); CARBON DIOXIDE 28.8 mmol/L (21-32); CHLORIDE 103 mmol/L (98-107); COR CA(FOR HYPOALB) 9.2 mg/dL (8.5-10.1); COR NA(FOR HYPERGLY) 142 mmol/L (136-145); GLUCOSE 187 mg/dL (65-99); POTASSIUM 4.3 mmol/L (3.5-5.1); SODIUM 140 mmol/L (136-145); TOTAL PROTEIN 7.1 g/dL (6.4-8.2); eGFR NON BLACK RACES > 60 (>60)
[2023-03-03] MEDS ORDERED: ZESTRIL TAB 20 MG ONE (08:26)
[2023-03-03] MEDS: LIPITOR TAB 40 MG PO SCH (08:30)
[2023-03-03] MEDS: ZESTRIL TAB 20 MG PO SCH (08:30)
[2023-03-03] MEDS: EXELON PO SCH ×2 (08:30→21:09)
[2023-03-03] MEDS: NAMENDA TAB 10 MG PO SCH (08:30)
[2023-03-03] MEDS: LINZESS PO SCH (08:30)
[2023-03-03] MEDS: COREG TAB 12.5 MG PO SCH ×2 (08:30→21:08)
[2023-03-03] MEDS: SYNTHROID 175 mcg TAB PO SCH (08:31)
[2023-03-03] MEDS: XARELTO PO SCH ×2 (08:50→21:10)
[2023-03-03] MEDS: SNACK - Diabetic Appropriate PO SCH (21:08)
[2023-03-03] MEDS: FLOMAX PO SCH (21:09)
[2023-03-03] MEDS: LEVEMIR SC SCH (21:09)
[2023-03-03] MEDS: OXYBUTYNIN CHLORIDE ER PO SCH (21:10)
[2023-03-03] MEDS: VALIUM PO PRN (21:11)
--- NOTE | 2023-03-03 21:13 | PCM.PROG ---
Progress Note - Progress Note for Day of Date of Exam: 03/02/23 - Subjective Subjective: IS A 77 YEAR OLD PATIENT OF . HE IS CURRENTLY OBSERVATION STATUS FOR EVALUATION AND TREATMENT OF BILATERAL LOWER EXTREMITY WEAKNESS. PATIENT REPORTS THAT INITIALLY, HE WAS UNABLE TO AMBULATE. HE REPORTS THAT SYMPTOMS STARTED AFTER HE FELL OUT OF HIS BED. NOW, HE REPORTS THAT HE CONTINUES WITH LOWER EXTREMITY WEAKNESS, BUT IS ABLE TO AMBULATE WITH A WALKER. HIS PMH INCLUDES: DM II, COPD, HTN, HIGH CHOLESTEROL, ANXIETY, CAD, HYPOTHYROIDISM, AND DEMENTIA. ON EXAMINATION TODAY, HEART IS REGULAR IN RATE AND RHYTHM. BILATERAL LUNGS ARE NOTED WITH DIMINISHED LUNG SOUNDS THROUGHOUT. ABDOMEN IS ROUND, SOFT, AND NON-TENDER WITH NORMAL BOWEL SOUNDS NOTED IN ALL QUADRANTS. WEAKNESS OF LOWER EXTREMITIES NOTED. NO EDEMA. HIS VITALS THIS MORNING ARE: 97.7-61-18-93%-146/60. LABS WERE OBTAINED. WBC 14.1, RBC 4.43, HGB 13.6, HCT 40.2, PLT COUNT 151, SODIUM 138, POTASSIUM 4.2, CHLORIDE 104, BUN 28, CREATININE 1.08, GLUCOSE 229, CALCIUM 8.8, TOTAL BILI 0.40, AST 15, ALT 28, ALK PHOS 74, TOTAL PROTEIN 7.2, ALBUMIN 3.3. WE REVEALED THE LUMBAR AND THORACIC SPINE MRIs WHICH DID NOT REVEAL ANYTHING ACUTE THAT WOULD CAUSE HIS SYMPTOMS. 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 STARTED HIM ON SOLU-MEDROL 40MG IV Q8H. WE WILL CONTINUE THE SOLU-MEDROL AND HIS HOME MEDICATIONS. WE WILL HAVE PHYSICAL THERAPY WORK WITH HIM. OTHERWISE, WE WILL FOLLOW-UP WITH AM LABS AND CONTINUE TO MONITOR. TIME SPENT ON CLINICAL ASSESSMENT, REVIEWING LABS AND IMAGING, DECISION MAKING, AND DOCUMENTATION GREATER THAN 45 MINUTES. - Past Medical Family Social History Past Med/Fam/Surg Hx: No changes since H&P Allergies: Allergies metformin Adverse Reaction (Mild, Verified 11/27/22 09:57) CONFUSION - Review of Systems ROS: No change since H&P - Vital Signs and I&O's Vital Signs: Vital Signs Temperature 97.5 F Pulse Rate [Brachial] 50 Respiratory Rate 18 Blood Pressure [Left Arm] 128/56 O2 Sat by Pulse Oximetry 92 Intake and Output: Intake & Output 01/1203/02/23 03/03/23 03/04/23 11:59 11:59 11:59 11:59 Intake Total 1680 / 1680 1945 / 1945 2260 / 2260 840 / 840 Output Total 2490 / 2490 920 / 920 1909 / 191 800 / 800 Balance -810 / -810 1025 / 1025 350 / 350 40 / 40 - Physical Exam Oriented: Normal, Time, Person, Place Eyes: Normal Ear: Normal Nose: Normal Throat: Normal Respiratory: Normal Cardiovascular: Normal : Normal Auscultation: Bowel Sounds: Normal Tenderness: Normal Skin: Normal Musculoskeletal: Normal Psychiatric: Normal Mood Description: Calm Affect: Normal Speech Pattern: Clear, Appropriate - Laboratory and Diagnostics Result Diagrams: 03/03/23 05:15 03/03/23 05:15 Labs: Laboratory WBC 14.0 X10^3/uL (3.6-10.0) H 03/03/23 05:15 RBC 4.49 X10^6/uL (4.7-6.0) L 03/03/23 05:15 Hgb 13.6 g/dL (13.5-18.0) 03/03/23 05:15 Hct 41.0 % (42.0-54.0) L 03/03/23 05:15 MCV 91.3 fL (80.0-100.0) 03/03/23 05:15 MCH 30.3 pg (27.0-34.0) 03/03/23 05:15 MCHC 33.2 g/dL (33.0-35.0) 03/03/23 05:15 RDW 14.0 % (11.6-16.5) 03/03/23 05:15 Plt Count 155 X10^3/uL (150.0-450.0) 03/03/23 05:15 Plt Count Comment Adequate (ADEQUATE) 03/01/23 04:50 MPV 8.6 fL (7.4-11.0) 03/03/23 05:15 Neut % (Auto) 86.9 % (42.0-75.0) H 03/03/23 05:15 Lymph % (Auto) 7.1 % (21.0-51.0) L 03/03/23 05:15 [place] % (Auto) 5.8 % (0.0-13.0) 03/03/23 05:15 Eos % (Auto) 0.0 % (0.9-2.9) L 03/03/23 05:15 Baso % (Auto) 0.2 % (0.2-1.0) 03/03/23 05:15 Neut # (Auto) 12.1 x10^3/uL (2.2-4.8) H 03/03/23 05:15 Lymph # (Auto) 1.0 X10^3/uL (1.3-2.9) L 03/03/23 05:15 [place] # (Auto) 0.8 x10^3/uL (0.3-0.8) 03/03/23 05:15 Eos # (Auto) 0.0 x10^3/uL (0.0-0.2) 03/03/23 05:15 Baso # (Auto) 0.0 X10^3/uL (0.0-0.1) 03/03/23 05:15 Absolute Nucleated RBC 0.0 /100WBC 03/03/23 05:15 Total Counted 100 03/01/23 04:50 Neutrophils % (Manual) 92 % (39-76) H 03/01/23 04:50 Band Neutrophils % 3 % (0-10) 03/01/23 04:50 Lymphocytes % (Manual) 2 % (13-43) L 03/01/23 04:50 Monocytes % (Manual) 3 % (4-9) L 03/01/23 04:50 Plt Morphology Comment Normal (NORMAL) 03/01/23 04:50 RBC Morphology Normal (NORMAL) 03/01/23 04:50 ESR 22 MM/HOUR (0-15) H 02/28/23 08:45 Sodium 140 mmol/L (136-145) 03/03/23 05:15 Corrected Sodium 142 mmol/L (136-145) 03/03/23 05:15 Potassium 4.3 mmol/L (3.5-5.1) 03/03/23 05:15 Chloride 103 mmol/L (98-107) 03/03/23 05:15 Carbon Dioxide 28.8 mmol/L (21-32) 03/03/23 05:15 BUN 25 mg/dL (7-18) H 03/03/23 05:15 Creatinine 1.00 mg/dL (0.70-1.30) 03/03/23 05:15 Est GFR (MDRD) Af Amer > 60 (>60) 03/03/23 05:15 Est GFR (MDRD) Non-Af > 60 (>60) 03/03/23 05:15 Glucose 187 mg/dL (65-99) H 03/03/23 05:15 POC Glucose (mg/dL) 265 mg/dL (65-99) H 03/03/23 19:24 Calcium 8.6 mg/dL (8.5-10.1) 03/03/23 05:15 Corrected Calcium 9.2 mg/dL (8.5-10.1) 03/03/23 05:15 Magnesium 2.3 mg/dL (2.0-2.9) 03/02/23 05:19 Total Bilirubin 0.40 mg/dL (0.2-1.0) 03/03/23 05:15 AST 19 Units/L (15-37) 03/03/23 05:15 ALT 40 Units/L (12-78) 03/03/23 05:15 Alkaline Phosphatase 72 Units/L (46-116) 03/03/23 05:15 Creatine Kinase 58 Units/L (39-308) 02/28/23 08:45 Troponin I High Sens 5.3 ng/L (4.0-60.0) 02/28/23 08:45 C-Reactive Protein 0.80 mg/L (0-3.0) 02/28/23 08:45 Total Protein 7.1 g/dL (6.4-8.2) 03/03/23 05:15 Albumin 3.2 g/dL (3.4-5.0) L 03/03/23 05:15 Globulin 3.9 g/dL (2.5-4.5) 03/03/23 05:15 Albumin/Globulin Ratio 0.8 Ratio (1.1-2.1) L 03/03/23 05:15 Lipase 245 Units/L (16-77) H 02/28/23 08:45 Specimen Type Clean catch urine 02/28/23 10:25 Urine Color Yellow (YELLOW) 02/28/23 10:25 Urine Appearance Clear (CLEAR) 02/28/23 10:25 Urine pH 5.0 (5.0 - 8.0) 02/28/23 10:25 Ur Specific [place] 1.020 (1.000-1.030) 02/28/23 10:25 Urine Protein 1+ (NEGATIVE) 02/28/23 10:25 Urine Glucose (UA) Negative (NEGATIVE) 02/28/23 10:25 Urine Ketones Negative (NEGATIVE) 02/28/23 10:25 Urine Blood Negative (NEGATIVE) 02/28/23 10:25 Urine Nitrite Negative (NEGATIVE) 02/28/23 10:25 Urine Bilirubin Negative (NEGATIVE) 02/28/23 10:25 Urine Urobilinogen Normal (NORMAL) 02/28/23 10:25 Ur Leukocyte Esterase Negative (NEGATIVE) 02/28/23 10:25 Urine RBC None seen /HPF (0-3) 02/28/23 10:25 Urine WBC 0-2 /HPF (0-5) 02/28/23 10:25 Ur Squamous Epith Cells Rare /HPF (NEGATIVE) 02/28/23 10:25 Urine Bacteria Negative /HPF (NEGATIVE) 02/28/23 10:25 Ur Culture Indicated? No/not indicated 02/28/23 10:25 - Plan (1) Bilateral leg weakness Status: Acute (2) Inability to walk Status: Acute Plan: Follow-up MRIs after they are done this morning. (3) Essential hypertension Status: Chronic (4) CAD (coronary artery disease) Status: Chronic Qualifiers: Coronary Disease-Associated Artery/Lesion type: unspecified vessel or lesion type [place] vs. transplanted heart: [place] heart (5) Type 2 diabetes mellitus Status: Acute Qualifiers: Diabetes mellitus halfway insulin use: with halfway use Diabetes mellitus complication status: with hyperglycemia Qualified Code(s): E11.65 - Type 2 diabetes mellitus with hyperglycemia; Z79.4 - keno terminal operator (current) use of insulin Plan: I will cover patient with slight scale regular insulin per protocol especially since we are giving him IV Solu-Medrol. (6) Hypothyroidism Status: Chronic Qualifiers: Hypothyroidism type: acquired Qualified Code(s): E03.9 - Hypothyroidism, unspecified (7) High cholesterol Status: Chronic
--- NOTE | 2023-03-03 22:55 | PCM.PROG ---
Progress Note - Progress Note for Day of Date of Exam: 03/03/23 - Subjective Subjective: IS A 77 YEAR OLD PATIENT OF . HE IS CURRENTLY OBSERVATION STATUS FOR EVALUATION AND TREATMENT OF BILATERAL LOWER EXTREMITY WEAKNESS. PATIENT REPORTS THAT INITIALLY, HE WAS UNABLE TO AMBULATE. HE REPORTS THAT SYMPTOMS STARTED AFTER HE FELL OUT OF HIS BED. NOW, HE REPORTS THAT HE CONTINUES WITH LOWER EXTREMITY WEAKNESS, BUT IS ABLE TO AMBULATE WITH A WALKER. HIS PMH INCLUDES: DM II, COPD, HTN, HIGH CHOLESTEROL, ANXIETY, CAD, HYPOTHYROIDISM, AND DEMENTIA. ON EXAMINATION TODAY, HEART IS REGULAR IN RATE AND RHYTHM. BILATERAL LUNGS ARE NOTED WITH DIMINISHED LUNG SOUNDS THROUGHOUT. ABDOMEN IS ROUND, SOFT, AND NON-TENDER WITH NORMAL BOWEL SOUNDS NOTED IN ALL QUADRANTS. WEAKNESS OF LOWER EXTREMITIES NOTED. NO EDEMA. HIS VITALS THIS MORNING ARE: 97.8-57-18-95%-140/67. LABS WERE OBTAINED. WBC 14.0, RBC 4.49, HGB 13.6, HCT 41.0, PLT COUNT 155, SODIUM 140, POTASSIUM 4.3, CHLORIDE 103, CARBON DIOXIDE 28.8, BUN 25, CREATININE 1.00, GLUCOSE 187, CALCIUM 8.6, TOTAL BILI 0.40, AST 19, ALT 40, ALK PHOS 72, TOTAL PROTEIN 7.1, ALBUMIN 3.2. WE REVEALED THE LUMBAR AND THORACIC SPINE MRIs WHICH DID NOT REVEAL ANYTHING ACUTE THAT WOULD CAUSE HIS SYMPTOMS. 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 STARTED HIM ON SOLU-MEDROL 40MG IV Q8H. WE WILL CONTINUE THE SOLU-MEDROL AND HIS HOME MEDICATIONS. WE WILL HAVE PHYSICAL THERAPY WORK WITH HIM. OTHERWISE, WE WILL FOLLOW-UP WITH AM LABS AND CONTINUE TO MONITOR. TIME SPENT ON CLINICAL ASSESSMENT, REVIEWING LABS AND IMAGING, DECISION MAKING, AND DOCUMENTATION GREATER THAN 45 MINUTES. - Past Medical Family Social History Past Med/Fam/Surg Hx: No changes since H&P Allergies: Allergies metformin Adverse Reaction (Mild, Verified 11/27/22 09:57) CONFUSION - Review of Systems ROS: No change since H&P - Vital Signs and I&O's Vital Signs: Vital Signs Temperature 97.6 F Temperature 97.5 F Pulse Rate [Brachial] 53 Pulse Rate [Brachial] 50 Respiratory Rate 20 Respiratory Rate 18 Blood Pressure [Left Arm] 154/75 Blood Pressure [Left Arm] 128/56 O2 Sat by Pulse Oximetry 95 O2 Sat by Pulse Oximetry 92 Intake and Output: Intake & Output 03/01/23 03/02/23 03/03/23 03/04/23 11:59 11:59 11:59 11:59 Intake Total 1680 / 1680 1945 / 1945 2260 / 2260 840 / 840 Output Total 2490 / 2490 920 / 920 1910 / 1910 800 / 800 Balance -810 / -810 1025 / 1025 350 / 350 40 / 40 - Physical Exam Oriented: Normal, Time, Person, Place Eyes: Normal Ear: Normal Nose: Normal Throat: Normal Respiratory: Normal Cardiovascular: Normal : Normal Auscultation: Bowel Sounds: Normal Tenderness: Normal Skin: Normal Musculoskeletal: Normal Psychiatric: Normal Mood Description: Calm Affect: Normal Speech Pattern: Clear, Appropriate - Laboratory and Diagnostics Result Diagrams: 03/03/23 05:15 03/03/23 05:15 Labs: Laboratory WBC 14.0 X10^3/uL (3.6-10.0) H 03/03/23 05:15 RBC 4.49 X10^6/uL (4.7-6.0) L 03/03/23 05:15 Hgb 13.6 g/dL (13.5-18.0) 03/03/23 05:15 Hct 41.0 % (42.0-54.0) L 03/03/23 05:15 MCV 91.3 fL (80.0-100.0) 03/03/23 05:15 MCH 30.3 pg (27.0-34.0) 03/03/23 05:15 MCHC 33.2 g/dL (33.0-35.0) 03/03/23 05:15 RDW 14.0 % (11.6-16.5) 03/03/23 05:15 Plt Count 155 X10^3/uL (150.0-450.0) 03/03/23 05:15 Plt Count Comment Adequate (ADEQUATE) 03/01/23 04:50 MPV 8.6 fL (7.4-11.0) 03/03/23 05:15 Neut % (Auto) 86.9 % (42.0-75.0) H 03/03/23 05:15 Lymph % (Auto) 7.1 % (21.0-51.0) L 03/03/23 05:15 [place] % (Auto) 5.8 % (0.0-13.0) 03/03/23 05:15 Eos % (Auto) 0.0 % (0.9-2.9) L 03/03/23 05:15 Baso % (Auto) 0.2 % (0.2-1.0) 03/03/23 05:15 Neut # (Auto) 12.1 x10^3/uL (2.2-4.8) H 03/03/23 05:15 Lymph # (Auto) 1.0 X10^3/uL (1.3-2.9) L 03/03/23 05:15 [place] # (Auto) 0.8 x10^3/uL (0.3-0.8) 03/03/23 05:15 Eos # (Auto) 0.0 x10^3/uL (0.0-0.2) 03/03/23 05:15 Baso # (Auto) 0.0 X10^3/uL (0.0-0.1) 03/03/23 05:15 Absolute Nucleated RBC 0.0 /100WBC 03/03/23 05:15 Total Counted 100 03/01/23 04:50 Neutrophils % (Manual) 92 % (39-76) H 03/01/23 04:50 Band Neutrophils % 3 % (0-10) 03/01/23 04:50 Lymphocytes % (Manual) 2 % (13-43) L 03/01/23 04:50 Monocytes % (Manual) 3 % (4-9) L 03/01/23 04:50 Plt Morphology Comment Normal (NORMAL) 03/01/23 04:50 RBC Morphology Normal (NORMAL) 03/01/23 04:50 ESR 22 MM/HOUR (0-15) H 02/28/23 08:45 Sodium 140 mmol/L (136-145) 03/03/23 05:15 Corrected Sodium 142 mmol/L (136-145) 03/03/23 05:15 Potassium 4.3 mmol/L (3.5-5.1) 03/03/23 05:15 Chloride 103 mmol/L (98-107) 03/03/23 05:15 Carbon Dioxide 28.8 mmol/L (21-32) 03/03/23 05:15 BUN 25 mg/dL (7-18) H 03/03/23 05:15 Creatinine 1.00 mg/dL (0.70-1.30) 03/03/23 05:15 Est GFR (MDRD) Af Amer > 60 (>60) 03/03/23 05:15 Est GFR (MDRD) Non-Af > 60 (>60) 03/03/23 05:15 Glucose 187 mg/dL (65-99) H 03/03/23 05:15 POC Glucose (mg/dL) 265 mg/dL (65-99) H 03/03/23 19:24 Calcium 8.6 mg/dL (8.5-10.1) 03/03/23 05:15 Corrected Calcium 9.2 mg/dL (8.5-10.1) 03/03/23 05:15 Magnesium 2.3 mg/dL (2.0-2.9) 03/02/23 05:19 Total Bilirubin 0.40 mg/dL (0.2-1.0) 03/03/23 05:15 AST 19 Units/L (15-37) 03/03/23 05:15 ALT 40 Units/L (12-78) 03/03/23 05:15 Alkaline Phosphatase 72 Units/L (46-116) 03/03/23 05:15 Creatine Kinase 58 Units/L (39-308) 02/28/23 08:45 Troponin I High Sens 5.3 ng/L (4.0-60.0) 02/28/23 08:45 C-Reactive Protein 0.80 mg/L (0-3.0) 02/28/23 08:45 Total Protein 7.1 g/dL (6.4-8.2) 03/03/23 05:15 Albumin 3.2 g/dL (3.4-5.0) L 03/03/23 05:15 Globulin 3.9 g/dL (2.5-4.5) 03/03/23 05:15 Albumin/Globulin Ratio 0.8 Ratio (1.1-2.1) L 03/03/23 05:15 Lipase 245 Units/L (16-77) H 02/28/23 08:45 Specimen Type Clean catch urine 02/28/23 10:25 Urine Color Yellow (YELLOW) 02/28/23 10:25 Urine Appearance Clear (CLEAR) 02/28/23 10:25 Urine pH 5.0 (5.0 - 8.0) 02/28/23 10:25 Ur Specific [place] 1.020 (1.000-1.030) 02/28/23 10:25 Urine Protein 1+ (NEGATIVE) 02/28/23 10:25 Urine Glucose (UA) Negative (NEGATIVE) 02/28/23 10:25 Urine Ketones Negative (NEGATIVE) 02/28/23 10:25 Urine Blood Negative (NEGATIVE) 02/28/23 10:25 Urine Nitrite Negative (NEGATIVE) 02/28/23 10:25 Urine Bilirubin Negative (NEGATIVE) 02/28/23 10:25 Urine Urobilinogen Normal (NORMAL) 02/28/23 10:25 Ur Leukocyte Esterase Negative (NEGATIVE) 02/28/23 10:25 Urine RBC None seen /HPF (0-3) 02/28/23 10:25 Urine WBC 0-2 /HPF (0-5) 02/28/23 10:25 Ur Squamous Epith Cells Rare /HPF (NEGATIVE) 02/28/23 10:25 Urine Bacteria Negative /HPF (NEGATIVE) 02/28/23 10:25 Ur Culture Indicated? No/not indicated 02/28/23 10:25 - Plan (1) Bilateral leg weakness Status: Acute Plan: Will start patient on Solu-Medrol 40 mg IV 3 times daily and check MRI of his thoracic and lumbar spine with and without contrast this morning. Reviewed findings with patient when report is available. (2) Inability to walk Status: Acute Plan: Follow-up MRIs after they are done this morning. (3) Essential hypertension Status: Chronic (4) CAD (coronary artery disease) Status: Chronic Qualifiers: Coronary Disease-Associated Artery/Lesion type: unspecified vessel or lesion type [place] vs. transplanted heart: [place] heart (5) Type 2 diabetes mellitus Status: Acute Qualifiers: Diabetes mellitus half-way insulin use: with bed bug exterminator use Diabetes mellitus complication status: with hyperglycemia Qualified Code(s): E11.65 - Type 2 diabetes mellitus with hyperglycemia; Z79.4 - alf (current) use of insulin Plan: I will cover patient with slight scale regular insulin per protocol especially since we are giving him IV Solu-Medrol. (6) Hypothyroidism Status: Chronic Qualifiers: Hypothyroidism type: acquired Qualified Code(s): E03.9 - Hypothyroidism, unspecified (7) High cholesterol Status: Chronic
[2023-03-04] MEDS: NEURONTIN CAP 100 MG PO SCH (05:42)
[2023-03-04] MEDS: NovoLIN R (or HumuLIN R) SUBCUT PRN ×2 (05:43→10:59)
[2023-03-04] MEDS: SOLU-Medrol 40 MG VIAL IVP SCH (05:43)
[2023-03-04 06:47] LABS: BASOPHILS % (AUTO) 0.1 % (0.2-1.0); HEMATOCRIT 43.1 % (42.0-54.0); HEMOGLOBIN 14.7 g/dL (13.5-18.0); LYMPHOCYTES # (AUTO) 0.9 X10^3/uL (1.3-2.9); LYMPHOCYTES % (AUTO) 8.4 % (21.0-51.0); MEAN CORPUSCULAR HEMOGLOBIN 30.9 pg (27.0-34.0); MEAN CORPUSCULAR VOLUME 90.9 fL (80.0-100.0); MEAN PLATELET VOLUME 8.6 fL (7.4-11.0); MONOCYTES # (AUTO) 0.5 x10^3/uL (0.3-0.8); MONOCYTES % (AUTO) 5.2 % (0.0-13.0); NEUTROPHILS # (AUTO) 8.8 x10^3/uL (2.2-4.8); NEUTROPHILS % (AUTO) 86.3 % (42.0-75.0); PLATELET COUNT 150 X10^3/uL (150.0-450.0); RED BLOOD COUNT 4.75 X10^6/uL (4.7-6.0); RED CELL DISTRIBUTION WIDTH 13.7 % (11.6-16.5); WHITE BLOOD COUNT 10.2 X10^3/uL (3.6-10.0)
[2023-03-04 07:28] LABS: ALANINE AMINOTRANSFERASE 64 Units/L (12-78); ALBUMIN 3.3 g/dL (3.4-5.0); ALKALINE PHOSPHATASE 69 Units/L (46-116); ASPARTATE AMINO TRANSFERASE 22 Units/L (15-37); BLOOD UREA NITROGEN 31 mg/dL (7-18); CALCIUM 8.7 mg/dL (8.5-10.1); CHLORIDE 105 mmol/L (98-107); COR CA(FOR HYPOALB) 9.3 mg/dL (8.5-10.1); COR NA(FOR HYPERGLY) 142 mmol/L (136-145); CREATININE 1.05 mg/dL (0.70-1.30); GLUCOSE 195 mg/dL (65-99); POTASSIUM 4.1 mmol/L (3.5-5.1); SODIUM 140 mmol/L (136-145); TOTAL PROTEIN 7.2 g/dL (6.4-8.2); eGFR NON BLACK RACES > 60 (>60)
[2023-03-04] MEDS ORDERED: ZESTRIL TAB 20 MG ONE (07:47)
[2023-03-04] MEDS: COREG TAB 12.5 MG PO SCH (08:38)
[2023-03-04] MEDS: SYNTHROID 175 mcg TAB PO SCH (08:38)
[2023-03-04] MEDS: NAMENDA TAB 10 MG PO SCH (08:38)
[2023-03-04] MEDS: LINZESS PO SCH (08:38)
[2023-03-04] MEDS: ZESTRIL TAB 20 MG PO SCH (08:38)
[2023-03-04] MEDS: LIPITOR TAB 40 MG PO SCH (08:38)
[2023-03-04] MEDS: EXELON PO SCH (08:43)
[2023-03-04] MEDS: XARELTO PO SCH (08:48)
[2023-03-04 09:31] VITALS: RESP 18
[2023-03-04 12:29] VITALS: BP 111/57; PULSE 51; TEMP 97.1; O2SAT 92
== END 2023-03-04 12:35 | disposition home health service (06) ==
LOC: ER 08:07 → MED/SURG 08:07
PROVIDERS: ADMIT Family Medicine; ATTEND Family Medicine
DX: Z79.4 Long term (current) use of insulin; R26.89 Other abnormalities of gait and mobility; I10 Essential (primary) hypertension; R70.0 Elevated erythrocyte sedimentation rate; E11.65 Type 2 diabetes mellitus with hyperglycemia; R53.1 Weakness; R26.2 Difficulty in walking, not elsewhere classified; J44.9 Chronic obstructive pulmonary disease, unspecified; E83.42 Hypomagnesemia; M47.896 Other spondylosis, lumbar region; Z91.81 History of falling